=== PATIENT | male | born 2000 | race Caucasian/White ===

== ENCOUNTER 2021-07-12 20:12 | Emergency (ER) | payer SELFPAY ==
[~2021-07-12] VITALS: Ht 180.3 cm; Wt 90.7 kg
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
[2021-07-12] MEDS ORDERED: IBUP-1953 PO (21:50)
[2021-07-12] MEDS ORDERED: CYCL5TAB PO (21:50)
[2021-07-12] MEDS ORDERED: IBUPROFEN 600 MG TABLET ONE (21:56)
[2021-07-12] MEDS: IBUPROFEN 600 MG TABLET PO ONE (21:57)
[2021-07-12 22:30] VITALS: BP 140/77
--- NOTE | 2021-07-12 22:30 | NUR ---
Patient discharged to home in stable condition. Written and verbal after care instructions given. Patient verbalizes understanding of instruction.
== END 2021-07-12 22:30 | disposition home or self-care (01) ==
LOC: ER 20:12
DX: S06.0X9A Concussion with loss of consciousness of unspecified duration, initial encounter (principal); S39.012A Strain of muscle, fascia and tendon of lower back, initial encounter; S80.02XA Contusion of left knee, initial encounter; M99.01 Segmental and somatic dysfunction of cervical region; Z91.018 Allergy to other foods; Z60.2 Problems related to living alone; V89.2XXA Person injured in unspecified motor-vehicle accident, traffic, initial encounter; Y93.89 Activity, other specified; Y92.89 Other specified places as the place of occurrence of the external cause; Y99.8 Other external cause status
CPT/HCPCS: 70450-TC; 72125-TC; 72131-TC; 73564-TC